=== PATIENT | male | born 1960 | race Two or more races ===

== ENCOUNTER 2018-02-19 09:42 | Emergency (ER) | payer BC ==
[2018-02-19 11:09] LABS: ABS Basophils 0.1 10^3/ul (0-0.2); ABS Eosinophils 0.3 10^3/ul (0-0.6); ABS Lymphocytes 2.1 10^3/ul (1.0-4.8); ABS Monocytes 0.5 10^3/ul (0-0.8); ABS Neutrophils 3.5 10^3/ul (1.5-7.7); ABS Nucleated RBC 0 10^3/ul; Eosinophil % 4.3 % (0-6); Hematocrit 43 % (42-52); Hemoglobin 14.4 g/dl (14.0-18.0); Lymphocyte % 32.4 % (25-47); Mean Corpuscular HGB Conc 34 g/dl (31-36); Mean Corpuscular Hemoglobin 31 pg (27-31); Mean Corpuscular Volume 93 fL (80-94); Mean Platelet Volume 7.3 fL (7.4-10.4); Nucleated Red Blood Cells % 0.1; Platelet Count 274 10^3/ul (150-450); Red Blood Count 4.59 10^6/ul (4.00-5.40); Red Cell Distribution Width 13 % (10.5-15); White Blood Count 6.4 10^3/ul (3.5-10.8)
[2018-02-19 11:28] LABS: EGFR Non-African American 100.4 (>60)
[2018-02-19] MEDS ORDERED: PROCHLORPERAZINE INJ 5 MG/ML 2 ML VIAL IV ONE (11:34)
[2018-02-19] MEDS ORDERED: diPHENhydraMINE IV* 50 MG/ML 1 ml VIAL (BENADRYL) IV ONE (11:34)
[2018-02-19] MEDS ORDERED: Ketorolac INJ* 30 MG/ML 1 ML VIAL IV PUSH ONE (11:35)
--- NOTE | 2018-02-19 13:28 | ED ---
Headache - HPI Summary HPI Summary: Patient is a 57-year-old male presenting to the ED with chief complaint of 4 day history of moderate to severe headache which is more to the right side and occipital area as well as cough, congestion. Denies any fevers, sweats, chills. Denies any cough or production. Denies any abdominal pain, constipation, diarrhea, nausea, vomiting. He states he is otherwise well and does not have a history of headaches or migraines otherwise. Through the yard person he states he has had these headaches for approximately one month however it was mild and did not require any medication. The past 4 days he has been taking Tylenol without relief. He was seen here by his PCP to rule out meningitis. He denies any photophobia or stiff neck. He remains ambulatory. - History Of Current Complaint Chief Complaint: EDFluSymptoms Stated Complaint: COUGH,FEVER Time Seen by Provider: 02/19/18 09:47 Hx Obtained From: Patient Onset/Duration: Gradual Onset Initially Headache Was: Initial Pain Scale(0-10)= - 9 Currently Pain Is: Current Pain Scale(0-10)= - 9 Timing: Constant Character: Throbbing Location of Headache: Occipital Aggravating Factor: Nothing Allevating Factors: Nothing Associated Signs And Symptoms: Negative - Risk Factors SAH Risk Factors: Negative SDH Risk Factors: Negative - Allergies/Home Medications Allergies/Adverse Reactions: Allergies Allergy/AdvReac Type Severity Reaction Status Date / Time No Known Allergies Allergy Verified 03/10/13 13:03 PMH/Surg Hx/FS Hx/Imm Hx Previously Healthy: Yes Psychiatric History: Denies: Hx of Violent Episodes Against Others - Surgical History Surgery Procedure, Year, and Place: Appendectomy. Vesicular repair - Immunization History Hx Pertussis Vaccination: No Immunizations Up to Date: Yes Infectious Disease History: No Infectious Disease History: Denies: Hx Clostridium Difficile, Traveled Outside the [place] in Last 30 Days - Family History Known Family History: Positive: None - Social History Occupation: Unemployed Lives: With Family Alcohol Use: None Substance Use Type: Reports: None Hx Tobacco Use: Yes Smoking Status (MU): Former Smoker Have You Smoked in the Last Year: No Review of Systems Constitutional: Negative Negative: Fever, Chills, Fatigue, Skin Diaphoresis Negative: Palpitations, Chest Pain Positive: Cough. Negative: Shortness Of Breath Negative: Abdominal Pain, Vomiting, Diarrhea, Nausea Genitourinary: Negative Positive: no symptoms reported, see HPI Negative: Arthralgia, Myalgia Negative: Rash, Bruising Positive: Headache Psychological: Normal All Other Systems Reviewed And Are Negative: Yes Physical Exam Triage Information Reviewed: Yes Vital Signs On Initial Exam: Initial Vitals Temp Pulse Resp BP Pulse Ox 98.8 F 81 16 166/93 97 02/19/18 09:44 02/19/18 09:44 02/19/18 09:44 02/19/18 09:44 02/19/18 09:44 Vital Signs Reviewed: Yes Appearance: Positive: Well-Appearing, Well-Nourished Skin: Positive: Skin Color Reflects Adequate Perfusion Head/Face: Positive: Normal Head/Face Inspection Eyes: Positive: EOMI, MARLO, Conjunctiva Clear ENT: Positive: Hearing grossly normal, Pharynx normal, TMs normal. Negative: Nasal congestion, Nasal drainage, Tonsillar swelling, Tonsillar exudate, Dental tenderness, Sinus tenderness Neck: Positive: Supple, No Lymphadenopathy Respiratory/Lung Sounds: Positive: Clear to Auscultation, Breath Sounds Present Cardiovascular: Positive: Normal, RRR, Pulses are Symmetrical in both Upper and Lower Extremities Musculoskeletal: Positive: Strength/ROM Intact Neurological: Positive: Sensory/Motor Intact, Alert, Oriented to Person Place, Time, Speech Normal Psychiatric: Positive: Normal, Affect/Mood Appropriate AVPU Assessment: Alert Diagnostics - Vital Signs Vital Signs Temp Pulse Resp BP Pulse Ox 02/19/18 12:57 69 134/74 97 02/19/18 11:57 70 148/87 98 02/19/18 11:27 72 140/93 98 02/19/18 11:13 99.6 F 69 20 136/82 96 02/19/18 11:00 70 95 02/19/18 10:57 72 136/82 97 02/19/18 10:27 72 167/90 97 02/19/18 09:44 98.8 F 81 16 166/93 97 - Laboratory Lab Results: Lab Results 02/19/18 02/19/18 02/19/18 Range/Units 10:41 10:45 11:00 WBC 6.4 (3.5-10.8) 10^3/ul RBC 4.59 (4.00-5.40) 10^6/ul Hgb 14.4 (14.0-18.0) g/dl Hct 43 (42-52) % MCV 93 (80-94) fL MCH 31 (27-31) pg MCHC 34 (31-36) g/dl RDW 13 (10.5-15) % Plt Count 274 (150-450) 10^3/ul MPV 7.3 L (7.4-10.4) fL Neut % (Auto) 54.6 (38-83) % Lymph % (Auto) 32.4 (25-47) % Imperial % (Auto) 7.3 H (0-7) % Eos % (Auto) 4.3 (0-6) % Baso % (Auto) 1.4 (0-2) % Absolute Neuts (auto) 3.5 (1.5-7.7) 10^3/ul Absolute Lymphs (auto) 2.1 (1.0-4.8) 10^3/ul Absolute Monos (auto) 0.5 (0-0.8) 10^3/ul Absolute Eos (auto) 0.3 (0-0.6) 10^3/ul Absolute Basos (auto) 0.1 (0-0.2) 10^3/ul Absolute Nucleated RBC 0 10^3/ul Nucleated RBC % 0.1 Sodium (135-145) mmol/L Potassium (3.5-5.0) mmol/L Chloride (101-111) mmol/L Carbon Dioxide (22-32) mmol/L Anion Gap (2-11) mmol/L BUN (6-24) mg/dL Creatinine (0.67-1.17) mg/dL Est GFR ( Amer) (>60) Est GFR (Non-Af Amer) (>60) BUN/Creatinine Ratio (8-20) Glucose (70-100) mg/dL Calcium (8.6-10.3) mg/dL Total Bilirubin (0.2-1.0) mg/dL AST (13-39) U/L ALT (7-52) U/L Alkaline Phosphatase (34-104) U/L C-Reactive Protein (<8.01) mg/L Total Protein (6.4-8.9) g/dL Albumin (3.2-5.2) g/dL Globulin (2-4) g/dL Albumin/Globulin Ratio (1-3) Influenza A (Rapid) Negative (Negative) Influenza B (Rapid) Negative (Negative) Group A Strep Rapid Negative (Negative) 02/19/18 Range/Units 11:00 WBC (3.5-10.8) 10^3/ul RBC (4.00-5.40) 10^6/ul Hgb (14.0-18.0) g/dl Hct (42-52) % MCV (80-94) fL MCH (27-31) pg MCHC (31-36) g/dl RDW (10.5-15) % Plt Count (150-450) 10^3/ul MPV (7.4-10.4) fL Neut % (Auto) (38-83) % Lymph % (Auto) (25-47) % Imperial % (Auto) (0-7) % Eos % (Auto) (0-6) % Baso % (Auto) (0-2) % Absolute Neuts (auto) (1.5-7.7) 10^3/ul Absolute Lymphs (auto) (1.0-4.8) 10^3/ul Absolute Monos (auto) (0-0.8) 10^3/ul Absolute Eos (auto) (0-0.6) 10^3/ul Absolute Basos (auto) (0-0.2) 10^3/ul Absolute Nucleated RBC 10^3/ul Nucleated RBC % Sodium 139 (135-145) mmol/L Potassium 4.2 (3.5-5.0) mmol/L Chloride 109 (101-111) mmol/L Carbon Dioxide 24 (22-32) mmol/L Anion Gap 6 (2-11) mmol/L BUN 15 (6-24) mg/dL Creatinine 0.80 (0.67-1.17) mg/dL Est GFR ( Amer) 121.4 (>60) Est GFR (Non-Af Amer) 100.4 (>60) BUN/Creatinine Ratio 18.8 (8-20) Glucose 105 H (70-100) mg/dL Calcium 9.0 (8.6-10.3) mg/dL Total Bilirubin 0.30 (0.2-1.0) mg/dL AST 23 (13-39) U/L ALT 36 (7-52) U/L Alkaline Phosphatase 91 (34-104) U/L C-Reactive Protein 14.68 H (<8.01) mg/L Total Protein 6.9 (6.4-8.9) g/dL Albumin 4.1 (3.2-5.2) g/dL Globulin 2.8 (2-4) g/dL Albumin/Globulin Ratio 1.5 (1-3) Influenza A (Rapid) (Negative) Influenza B (Rapid) (Negative) Group A Strep Rapid (Negative) Result Diagrams: 02/19/18 11:00 02/19/18 11:00 Lab Statement: Any lab studies that have been ordered have been reviewed, and results considered in the medical decision making process. Headache Course/Dx - Course Course Of Treatment: Vital signs are stable on arrival. Patient appears nontoxic, however appears ill. On physical examination, right conjunctival injection, however without drainage, or irritation. No cervical LAD. Neck without stiffness and is able to flex and extend as well as rotate without pain. No pharyngeal erythema. TMs without erythema, positive cone of light. No pus pocket. Lungs CTA. RRR. Chest x-ray obtained shows no active acute cardio pulmonary disease. Negative strep and negative flu. He denies any chest pressure, congestion, abdominal pain, fevers, sweats, chills. Labs are not obtained at this time is patient appears otherwise well. Chief complaint is headache 1 month which is worsened over the past [address] brain obtained which is no active intracranial pathologies. The patient improved significantly with 1 L normal saline fluids, Compazine 10 mg and Toradol 30 mg. Discussed treatment options with patient and he will be given sumatriptan for headache/migraine. He'll follow up with his PCP as scheduled next Monday. He is also encouraged to continue to take Tylenol for headaches. He will be diagnosed with headache and viral illness. - Diagnoses Provider Diagnoses: Headache, Viral syndrome Discharge - Sign-Out/Discharge Documenting (check all that apply): Patient Departure - Discharge Plan Condition: Stable Disposition: HOME Prescriptions: SUMAtriptan TAB* [Imitrex TAB*] 50 mg PO QID PRN #15 tab MDD 200 PRN Reason: Migraine Headache Patient Education Materials: Migraine Headache (ED), Viral Syndrome (ED) Referrals: Beto Dhillon MD [Primary Care Provider] - Additional Instructions: Please follow up with PCP I believe you are having a headache, possibly migraine which is worsened by your acute viral illness You may continue to take tylenol 650mg three times daily for headache Drink plenty of water Sumatriptan: Take 1 tab (50mg) at the first onset of a headache If symptoms continue, you may take a second dose 2 hours later Do not exceed 4 tabs (200mg) per day - Billing Disposition and Condition Condition: STABLE Disposition: Home
[2018-02-19 13:50] VITALS: BP 128/75
== END 2018-02-19 13:40 | disposition home or self-care (01) ==
LOC: ED 09:42
DX: B34.9 Viral infection, unspecified (principal); R51 Headache; Z87.891 Personal history of nicotine dependence
CPT/HCPCS: 36415; 70450; 71046; 80053; 85025; 86140; 87651; 96374; 96375; 99283; J0780; J1885

== ENCOUNTER 2018-12-11 14:45 | Emergency (ER) | payer BC ==
[2018-12-11 14:58] VITALS: BP 145/92
--- NOTE | 2018-12-11 15:15 | UC ---
Throat Pain/Nasal Jason HPI - HPI Summary HPI Summary: This patient is a 58-year-old male who presents to the urgent care with a chief complaint of having fevers, body aches, sore throat, productive cough with greenish phlegm, fevers and generalized malaise and aches. Patient is be having the symptoms for the last 3 or 4 days. He also reports nasal congestion , postnasal drips and sinus pain. He denies any chest pain shortness of breath or palpitations. He has no other complaints. - History of Current Complaint Chief Complaint: UCRespiratory Stated Complaint: URI Time Seen by Provider: 12/11/18 15:06 Hx Obtained From: Patient Onset/Duration: Gradual Onset Severity: Mild Pain Intensity: 7 - Allergies/Home Medications Allergies/Adverse Reactions: Allergies Allergy/AdvReac Type Severity Reaction Status Date / Time No Known Allergies Allergy Verified 12/11/18 14:58 Home Medications: Home Medications Gabapentin 300 mg PO 12/11/18 [History] Omeprazole 40 mg PO 12/11/18 [History] Sertraline HCl [Zoloft] 150 mg PO 12/11/18 [History] PMH/Surg Hx/FS Hx/Imm Hx Previously Healthy: Yes Psychological History: Anxiety, Depression - Surgical History Surgical History: Yes Surgery Procedure, Year, and Place: [facility] - Family History Known Family History: Positive: Diabetes - Social History Alcohol Use: Daily Substance Use Type: None Smoking Status (MU): Never Smoked Tobacco Review of Systems All Other Systems Reviewed And Are Negative: Yes Constitutional: Positive: Fever, Chills Skin: Positive: Negative Eyes: Positive: Negative ENT: Positive: Sore Throat, Sinus Congestion, Sinus Pain/Tenderness Respiratory: Positive: Negative Cardiovascular: Positive: Negative Gastrointestinal: Positive: Negative Genitourinary: Positive: Negative Motor: Positive: Negative Neurovascular: Positive: Negative Musculoskeletal: Positive: Negative Neurological: Positive: Negative Psychological: Positive: Negative Is Patient Immunocompromised?: No Physical Exam - Summary Physical Exam Summary: VITAL SIGNS: Reviewed. GENERAL: Patient is a well developed and nourished male who is sitting comfortable in the stretcher. Patient is not in any acute respiratory distress. HEAD AND FACE: Normocephalic and atraumatic. EYES: PERRLA, EOMI x 2, EARS: Hearing grossly intact. Positive maxillary sinus tenderness. Positive nasal discharge with yellowish discharge MOUTH: Oropharynx within normal limits. NECK: Supple, trachea is midline, no adenopathy, no JVD, no carotid bruit, no c- spine tenderness, neck with full ROM. CHEST: Symmetric, no tenderness at palpation LUNGS: CTA B/L. No wheezing or crackles. CVS: RRR, S1 and S2 present, no murmurs or gallops appreciated. ABDOMEN: Soft, NT, No distention. Normal BS. EXTREMITIES: FROM in all major joints, no edema, no cyanosis or clubbing. NEURO: Alert and oriented x 3. No acute neurological deficits. Speech is normal and follows commands. SKIN: Dry and warm Triage Information Reviewed: Yes Appearance: Well-Appearing Vital Signs: Initial Vital Signs Temp 97.1 F 12/11/18 14:49 Pulse 100 12/11/18 14:49 Resp 18 12/11/18 14:49 BP 145/92 12/11/18 14:49 Pulse Ox 100 12/11/18 14:49 Vital Signs Reviewed: Yes Throat Pain/Nasal Course/Dx - Course Course Of Treatment: Rapid strep test: Negative Chest x-ray impression: Negative for an acute pathology However, IU believe patient has an acute sinusitis and posible bacterial since patient with fever, postnasal drip, nasal discharge and body aches. I think patient will benefit of a prescription for Augmentin for 10 days, - Differential Dx/Diagnosis Provider Diagnosis: Acute sinusitis Discharge ED - Sign-Out/Discharge Documenting (check all that apply): Patient Departure All imaging exams completed and their final reports reviewed: Yes - Discharge Plan Condition: Improved Disposition: HOME Prescriptions: Amoxicillin/Clavulanate TAB* [Augmentin TAB 875*] 875 mg PO BID #20 tab Patient Education Materials: Sinusitis (ED) Print Language: GREENLANDIC Forms: *Work Release Referrals: No Primary Care Phys,NOPCP [Primary Care Provider] - [facility] [facility] [Outside] Additional Instructions: Take medications as instructed Increase your fluid intake F/U with PCP in the next 2-3 days Return to the if symptoms worsen - Billing Disposition and Condition Condition: IMPROVED Disposition: Home
== END 2018-12-11 16:04 | disposition home or self-care (01) ==
LOC: MERGE 14:45 → UCEAST 14:45
DX: J01.90 Acute sinusitis, unspecified (principal); F41.9 Anxiety disorder, unspecified; F32.9 Major depressive disorder, single episode, unspecified
CPT/HCPCS: 71046; 87651; 99202; G0463